=== PATIENT | male | born 1990 | race Caucasian/White ===

== ENCOUNTER 2017-05-30 08:30 | Outpatient (RCR) | payer BC ==
[~2017-05-30] VITALS: Ht 185.4 cm; Wt 68.0 kg
[~2017-05-30 08:30] MED LIST: DEXTROSE 5%(*) 100 ML BAG 100 ML IVPB PRN; LIDOCAINE/SOD BICARB 8.4% SYR ID PRN; NS(*) 0.9% 100 ML BAG 100 ML IVPB PRN
[2017-05-30 08:46] VITALS: BP 114/69
[2017-05-30 09:03] LABS: PLATELET COUNT, AUTOMATED 370 K/uL (150-450)
[2017-05-30] MEDS ORDERED: INFLIXIMAB IVPB ONE (09:10)
[2017-05-30] MEDS ORDERED: ACETAMINOPHEN 325 MG TAB PO PRN (09:10)
[2017-05-30] MEDS ORDERED: diphenhydrAMINE 50 MG/ML VIAL IVP PRN (09:10)
[2017-05-30] MEDS ORDERED: NS 0.9% IVPB ONE (09:10)
== END 2017-07-30 10:11 | disposition home or self-care (01) ==
LOC: SPU 08:30
PROVIDERS: ATTEND Nurse Practitioner Family
DX: K51.90 Ulcerative colitis, unspecified, without complications (principal); K52.9 Noninfective gastroenteritis and colitis, unspecified
CPT/HCPCS: 85025; 85651; 86140; 96375; 96413; 96415; J1200; J1745; J7050; 82040; 82247; 82310; 82374; 82435; 82565; 82947; 84075; 84132; 84155; 84295; 84450; 84460; 84520

== ENCOUNTER 2017-10-01 00:11 | Day surgery (SDC) | payer BC ==
[~2017-10-01] VITALS: Ht 188 cm; Wt 61.2 kg
[2017-10-01] MEDS ORDERED: PROPOFOL EMUL(*) 10MG/ML 20 ML 40 ML ONE (07:05)
[2017-10-01 08:32] VITALS: BP 130/76
[2017-10-01] MEDS ORDERED: LIDOCAINE/SOD BICARB 8.4% SYR ID ONE (08:45)
[2017-10-01] MEDS ORDERED: NORMOSOL R SOLN(*) 1000 ML BAG 1,000 ML IV PRN (08:45)
[2017-10-01 08:46] LABS: PLATELET COUNT, AUTOMATED 422 K/uL (150-450)
[2017-10-01] MEDS ORDERED: PROPOFOL EMUL(*) 10MG/ML 20 ML 20 ML ONE ×2 (10:56→11:13)
[2017-10-01 11:20] VITALS: BP 122/75
--- NOTE | 2017-10-01 11:31 | Short(Outpt) Discharge Summary ---
Discharge Summary Reason for Hosp/Final Diag: (1) Inflammatory bowel disease Status: Chronic Hospital Course & Plan: EGD and colonoscopy, both with biopsies completed without problems. (2) Severe diarrhea Status: Chronic Departure Discharge to: Home, Self Care Discharge Instructions Home Meds No Active Prescriptions or Reported Meds Follow up Referrals: General Surgery - 10/20/17 @ Surgery, General with Marci Nguyen Md You have a follow up appointment scheduled with Dr. Nguyen on 10/20/17, at 11:00am. Diet: Regular Activity: As Tolerated Special Instructions: Your endoscopy procedures were both completed without problems. I took numerous biopsies throughout your colon and the portions of your small bowel that are endoscopically accessible. I will see you back in my office and will discuss all these results with you and we'll come up with a game plan regarding the next course of action based on these results. MARCI NGUYEN MD Oct 01, 2017 11:31
[2017-10-01 11:45] VITALS: BP 108/87
[2017-10-01 11:46] VITALS: BP 106/72
== END 2017-10-01 12:25 | disposition home or self-care (01) ==
LOC: OR 00:11
PROVIDERS: ATTEND Surgery
DX: K52.9 Noninfective gastroenteritis and colitis, unspecified (principal); K44.9 Diaphragmatic hernia without obstruction or gangrene
CPT/HCPCS: 00811; 36415; 43239; 45380; 82248; 85025; 85651; 86140; 86255; 86671; 87077; 88305; J2704; 82040; 82247; 82310; 82374; 82435; 82565; 82947; 84075; 84132; 84155; 84295; 84450; 84460; 84520

== ENCOUNTER → 2017-10-29 | Outpatient (CLI) | payer BC ==
[~2017-10-29] MED LIST changes: +NS(*) 0.9% 1000 ML BAG 2,000 ML IV ONE; +ONDA4TAB9 PO; +PRED-317 PO; +PRED20TA6 PO
[2017-10-29 14:27] VITALS: BP 119/81
[2017-10-29 16:47] VITALS: BP 127/76
== END ==
LOC: SPU 14:08
PROVIDERS: ATTEND Surgery
DX: K51.90 Ulcerative colitis, unspecified, without complications (principal); K52.9 Noninfective gastroenteritis and colitis, unspecified; E86.0 Dehydration
CPT/HCPCS: 96360; 96361; J7030

== ENCOUNTER → 2018-02-26 | Outpatient (CLI) | payer BC ==
[~2018-02-26] MED LIST changes: -DEXTROSE 5%(*) 100 ML BAG 100 ML IVPB PRN; -LIDOCAINE/SOD BICARB 8.4% SYR ID PRN; -NS(*) 0.9% 100 ML BAG 100 ML IVPB PRN; -NS(*) 0.9% 1000 ML BAG 2,000 ML IV ONE
[2018-02-26 16:42] LABS: PLATELET COUNT, AUTOMATED 370 K/uL (150-450)
== END ==
LOC: LAB 16:02
PROVIDERS: ATTEND Internal Medicine Gastroenterology
DX: K51.00 Ulcerative (chronic) pancolitis without complications (principal)
CPT/HCPCS: 36415; 82306; 82465; 83718; 84478; 85025; 86140; 86480; 86704; 86706; 87340

== ENCOUNTER → 2018-04-10 | Outpatient (CLI) | payer BC | LOC: LAB 13:36 | PROVIDERS: ATTEND Internal Medicine Gastroenterology | DX: K51.00 Ulcerative (chronic) pancolitis without complications (principal) ==

== ENCOUNTER → 2018-05-14 | Outpatient (CLI) | payer BC ==
[~2018-05-14] MED LIST changes: +BARIUM SULFATE 450 ML SUSP ONE; +IOPAMIDOL 76% 100 ML INFUS BTL 100 ML ONE
--- NOTE | 2018-05-14 16:54 | RADIOLOGY IMAGING REPORT ---
FACILITY: [facility] - [place] PATIENT NAME: Jefe Sheppard : 1990 MR: [id number] V: [id number] EXAM DATE: [id number] ORDERING PHYSICIAN: KVNG MONTEZ TECHNOLOGIST: Location: [facility] [place] Patient: Jefe Sheppard : 1990 Visit/Account:[id number] Date of Sevice: 05/14/2018 ENTEROGRAPHY ABD/PEL W/CONTR HISTORY: Ulcerative chronic pancolitis, starting new treatment TECHNIQUE: Following administration of IV contrast contiguous axial images acquired through the abdom en/pelvis. Coronal and sagittal reformatting also performed.Dose Lowering Technique One of the following dose optimization techniques was utilized in the performance of this exam: Autom ated exposure control; adjustment of the mA and/or kV according to the patient's size; or use of an i terative reconstruction technique. Specific details can be referenced in the facility's radiology C T exam operational policy. CONTRAST: 75 mL mL Isovue-370, the patient also received 1350 mL of Volumen as an oral contrast COMPARISON: MR the abdomen October 25, 2016 FINDINGS: Visualized lung bases: Negative. Hepatobiliary: There are multiple small arterially enhancing nodules seen throughout the liver most prominent in the right lobe . Most measure less than 1 cm although one in the hepatic dome measures 1.2 cm. Most of these are not conspicuous on the portal venous phase images. There is one 7 mm enh ancing nodule along the posterior aspect the right dome that is seen on the portal venous phase image s. This may represent a hemangioma. The other arterially enhancing lesions could represent perfusio nal variants although further evaluation with MR is recommended to exclude other arterially enhancing masses with washout. Spleen: Negative. Adrenals: Negative. Pancreas: Negative. Kidneys ureters or bladder: Negative. Genitalia: Negative. GI: There is mild thickening enhancement throughout the entire course of the colon. The left-sided colon appears mostly decompressed. In the mid transverse colon there is an area of focal narrowing b est appreciated on axial image 69 of series 4 and coronal image 27 of series 6. There is an addition al focal narrowing in the proximal transverse colon best appreciated on image 71 of series 4 and wilbert nal image 28 of series 6. There is mild fluid distention of the right-sided colon proximal to these narrowings. The colon lacks the normal haustral markings.. There are several focal narrowings in the distal portion of the ileum. The most distal narrowing is approximately 6.8 cm proximal to the cecum Vessels/spaces/nodes: There are several mesenteric lymph nodes in the right side of the abdomen. A parts sales representative lymph node measures 1.4 x 0.7 cm Bones/soft tissues: Negative. Additional findings: None pertinent. IMPRESSION: There are multiple small arterially enhancing nodules seen throughout the liver most measuring less t colmenares 1 cm. Most of these are not apparent on the portal venous phase images and could represent perfu sional variants although further evaluation with MR is recommended to exclude other arterially enhanc ing masses with washout. There is a single 7 mm arterially enhancing nodule persists on the portal v enous phase images and could represent a hemangioma. There is mild thickening and enhancement throughout the entire course of the colon. There are two focal narrowings in the transverse colon one in the mid transverse colon one in the pro ximal transverse colon as described above. There is mild fluid distention of the right-sided colon p roximal to these narrowings. Colon lacks normal haustral markings. There are several focal narrowings in the distal portion of the ileum as described above. There are several mesenteric lymph nodes in the right-sided the abdomen largest measuring 1.4 x 0.7 c m Report Dictated By: Marcy Munoz MD at 05/14/2018 4:24 PM Report E-Signed By: Marcy Munoz MD at 05/14/2018 4:50 PM WSN:[email or web address]
== END ==
LOC: CT 00:48
PROVIDERS: ATTEND Internal Medicine Gastroenterology
DX: K51.00 Ulcerative (chronic) pancolitis without complications (principal); D89.9 Disorder involving the immune mechanism, unspecified; E44.0 Moderate protein-calorie malnutrition; K76.89 Other specified diseases of liver
CPT/HCPCS: Q9967

== ENCOUNTER → 2018-08-13 | Outpatient (CLI) | payer BC ==
[~2018-08-13] MED LIST changes: -BARIUM SULFATE 450 ML SUSP ONE; -IOPAMIDOL 76% 100 ML INFUS BTL 100 ML ONE
--- NOTE | 2018-08-13 14:16 | RADIOLOGY IMAGING REPORT ---
FACILITY: [facility] PATIENT NAME: Jefe Sheppard : 1990 MR: [id number] V: [id number] EXAM DATE: ORDERING PHYSICIAN: KVNG MONTEZ TECHNOLOGIST: Location: [facility] Patient: Jefe Sheppard : 1990 Visit/Account:[id number] Date of Sevice: 08/13/2018 Exam type: XR ORBITS History: Pre-MRI screening Comparison: October 25, 2016. Findings: No radiopaque metallic foreign bodies project over the orbits IMPRESSION: 1. No radial opaque metallic foreign bodies project over the orbits Report Dictated By: Marcy Munoz MD at 08/13/2018 2:10 PM Report E-Signed By: Marcy Munoz MD at 08/13/2018 2:11 PM WSN:[email or web address]
--- NOTE | 2018-08-13 16:51 | RADIOLOGY IMAGING REPORT ---
FACILITY: [facility] PATIENT NAME: Jefe Sheppard : 1990 MR: [id number] V: [id number] EXAM DATE: ORDERING PHYSICIAN: KVNG MONTEZ TECHNOLOGIST: Location: [facility] [place] Patient: Jefe Sheppard : 1990 Visit/Account:[id number] Date of Sevice: 08/13/2018 MR ABDOMEN W & W/O CON HISTORY: Ulcerative colitis, abnormal CT scan demonstrating hypervascular liver lesions TECHNIQUE: Multiplanar multisequence magnetic resonance imaging of the abdomen with and without intr avenous contrast. CONTRAST: 15 cc of MultiHance COMPARISON: CT scan 05/14/2018 FINDINGS: Liver: Measures 16.1 cm in craniocaudal length. In the dome of liver, segment 7, there is a benign-ap pearing 7 mm hemangioma which is decreased on T1, increased on T2 and demonstrates peripheral enhance ment with delayed washout. No other discrete focal liver lesions are seen. The arterial phase demonstrates heterogeneous arteria l phase enhancement of the dome of liver similar in appearance to CT scan which may represent perfusi onal variants. This is not a classic pattern for sclerosing cholangitis. The portal venous system is patent. Liver surface is smooth. Gallbladder and bile ducts: Negative. The common bile duct measures 3 mm. Spleen: Normal in signal intensity measures 11.8 cm in length Adrenal glands: Negative. Pancreas: Negative. Kidneys: Negative. 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 There may be a persistent stricture in the distal transverse colon similar in appearance to prior CT scan. Lymph nodes: Pericolonic lymph nodes likely reactive. Bones/soft tissues: Negative Visualized lung bases: Negative Visualized pelvis: Negative Other findings: None significant IMPRESSION: 1. Circumferential thickening and enhancement of the visualized colon consistent patient's diagnosis of ulcerative colitis. There may be a persistent focal stricture of the distal transverse colon simil ar in appearance to prior CT scan. 2. 7 mm benign hemangioma in the dome of liver. Small hypervascular foci are noted on the arterial ph ase the dome of liver not seen on other pulse sequences likely reflect perfusional variants. No bipin rning liver lesions are seen. Report Dictated By: Caleb Mohan MD at 08/13/2018 4:33 PM Report E-Signed By: Caleb Mohan MD at 08/13/2018 4:47 PM WSN:[id number]
== END ==
LOC: MRI 00:43
PROVIDERS: ATTEND Internal Medicine Gastroenterology
DX: D18.09 Hemangioma of other sites (principal)
CPT/HCPCS: 70030; 74183